=== PATIENT | female | born 1995 | race Caucasian/White ===

== ENCOUNTER → 2020-11-18 | Outpatient (REF) | payer OTHER ==
[2020-11-18 17:33] LABS: HEMATOCRIT 38.9 % (36.0-47.0); MEAN CORPUSCULAR HEMOGLOBIN 29.5 pg (27.0-33.0); MEAN CORPUSCULAR HGB CONC 33.4 g/dl (32.0-36.5); MEAN CORPUSCULAR VOLUME 88.4 fl (80.0-96.0); PLATELET COUNT, AUTOMATED 291 10^3/uL (150-450); WHITE BLOOD COUNT 7.7 10^3/uL (4.0-10.0)
[2020-11-18 18:42] LABS: HEPATITIS C VIRUS ABY INDEX < 0.0 INDEX (<0.8); HIV 1&2 SCREEN CENTAUR NEGATIVE (NEGATIVE)
== END ==
LOC: M PLALAB 15:41
PROVIDERS: ATTEND Advanced Practice Midwife
DX: Z36.89 Encounter for other specified antenatal screening (principal); Z3A.10 10 weeks gestation of pregnancy

== ENCOUNTER 2020-12-25 12:18 | Emergency (ER) | payer OTHER ==
[~2020-12-25] VITALS: Ht 177.8 cm; Wt 67.3 kg
[2020-12-25] MEDS ORDERED: TRUVTAB PO (12:24)
[2020-12-25] MEDS ORDERED: RALT40TA PO (12:24)
[2020-12-25] MEDS ORDERED: MULTTAB20 PO (12:24)
[2020-12-25 13:36] LABS: BASO % 0.4 % (0.0-1.0); EOS % 0.6 % (0.0-3.0); HEMATOCRIT 35.7 % (36.0-47.0); HEMOGLOBIN 12.5 g/dl (12.0-15.5); LYMPH # 1.1 10^3/uL (1.5-5.0); LYMPH % 23.3 % (24.0-44.0); MEAN CORPUSCULAR VOLUME 88.6 fl (80.0-96.0); MONO # 0.6 10^3/uL (0.0-0.8); MONO % 13.1 % (2.0-8.0); NEUTROPHILS % 62.4 % (36.0-66.0); PLATELET COUNT, AUTOMATED 217 10^3/uL (150-450); RED BLOOD COUNT 4.03 10^6/uL (4.00-5.40); WHITE BLOOD COUNT 4.7 10^3/uL (4.0-10.0)
[2020-12-25 14:04] LABS: ALBUMIN 3.5 GM/DL (3.2-5.2); ALT/SGPT 20 U/L (12-78); BILIRUBIN,TOTAL 0.2 MG/DL (0.2-1.0); BLOOD UREA NITROGEN 7 MG/DL (7-18); CARBON DIOXIDE LEVEL 27 MEQ/L (21-32); CHLORIDE LEVEL 105 MEQ/L (98-107); CREATININE FOR GFR 0.49 MG/DL (0.55-1.30); GLOMERULAR FILTRATION RATE > 60.0 (>60); GLUCOSE, FASTING 93 MG/DL (70-100); POTASSIUM SERUM 3.8 MEQ/L (3.5-5.1); SODIUM LEVEL 136 MEQ/L (136-145); TOTAL PROTEIN 7.2 GM/DL (6.4-8.2)
[2020-12-25 15:29] VITALS: BP 134/87
[2020-12-25 16:05] LABS: HIVEXPOSED0 NEGATIVE (NEGATIVE)
[2020-12-27 10:20] LABS: HEPATITIS B SURFACE ANTIBODY NEGATIVE (POSITIVE)
[2020-12-27 10:31] LABS: HEPATITIS B SURFACE ANTIGEN NEGATIVE (NEGATIVE)
[2020-12-27 10:59] LABS: HEPATITIS C VIRUS ABY INDEX < 0.0 INDEX (<0.8)
== END 2020-12-25 15:35 | disposition home or self-care (01) ==
LOC: M ED 12:18
DX: Z77.21 Contact with and (suspected) exposure to potentially hazardous body fluids (principal); O9A.212 Injury, poisoning and certain other consequences of external causes complicating pregnancy, second trimester; S69.92XA Unspecified injury of left wrist, hand and finger(s), initial encounter; X58.XXXA Exposure to other specified factors, initial encounter; Y92.238 Other place in hospital as the place of occurrence of the external cause; Y99.0 Civilian activity done for income or pay; Z3A.15 15 weeks gestation of pregnancy

== ENCOUNTER 2021-01-02 15:55 | Emergency (ER) | payer OTHER ==
[~2021-01-02] VITALS: Ht 177.8 cm; Wt 66.4 kg
[~2021-01-02 15:55] MED LIST: MULTTAB20 PO; RALT40TA PO; TRUVTAB PO
[2021-01-02] MEDS ORDERED: diphenhydrAMINE 50MG CAP PO ONE (18:10)
[2021-01-02] MEDS ORDERED: HYDROCORTISONE 1% CREAM 30 GM TOP ONE (18:10)
[2021-01-02 18:21] VITALS: BP 111/74
== END 2021-01-02 18:26 | disposition home or self-care (01) ==
LOC: M ED 15:55
DX: R21 Rash and other nonspecific skin eruption (principal); O99.712 Diseases of the skin and subcutaneous tissue complicating pregnancy, second trimester; L50.9 Urticaria, unspecified; Z3A.17 17 weeks gestation of pregnancy

== ENCOUNTER → 2021-01-10 | Outpatient (CLI) | payer OTHER ==
--- NOTE | 2021-01-10 17:22 | REP ---
INDICATION: ANATOMY. COMPARISON: None. TECHNIQUE: Transabdominal obstetric sonography. FINDINGS: Scanning through the gravid uterus demonstrates a viable single intrauterine gestation in cephalic lie. motion is observed and heart rate is recorded at 147 beats per minute. A posterior placenta is seen, grade 1, without evidence of placenta previa. Closed cervical length is measured at 3.0 cm transabdominally. No extrauterine abnormality is observed. Amniotic fluid is subjectively normal. The following anatomic structures are identified felt to be unremarkable: cranium, intracranial contents, nuchal fold face and profile nose and lips, left ventricular outflow tract view, diaphragm, left-sided stomach, abdominal wall cord insertion, right and left kidney, urinary bladder, upper and lower extremities, three-vessel cord. The following anatomic structures are less than optimally seen: For four-chamber heart and right ventricular outflow tract view, spine.. Biometry chart: BPD 4.1 cm, 18 weeks 2 days Head circumference 15.4 cm, 18 weeks 2 days Abdominal circumference 13.6 cm, 19 weeks 1 day Femur length 2.6 cm, 17 weeks 5 days Humeral length 2.6 cm, 18 weeks 3 days HC AC ratio normal 1.13 Cephalic index normal 0.72 Estimated weight 242 g, 0 lb 8 oz, 86 percentile for 17 weeks 5 days IMPRESSION: Viable single intrauterine gestation at 18 weeks 3 days by today's composite sonographic criteria. EDEN by today's sonography 10 June 2021. No complication identified. Expected gestational age estimate based on known EDEN of 15 June 2021 is 17 weeks 5 days. anatomic survey is less could than complete regarding four-chamber heart, right ventricular outflow tract view, and spine. <Electronically signed by Adin Torres > 01/10/21 [id number]
== END ==
LOC: M WHC 15:23
PROVIDERS: ATTEND Obstetrics & Gynecology
DX: Z34.82 Encounter for supervision of other normal pregnancy, second trimester (principal); Z3A.18 18 weeks gestation of pregnancy

== ENCOUNTER → 2021-01-24 | Outpatient (CLI) | payer OTHER ==
[~2021-01-24] MED LIST changes: +EMTR1TAB16 PO; -TRUVTAB PO
== END ==
LOC: M PLALAB 11:38
PROVIDERS: ATTEND Obstetrics & Gynecology
DX: Z34.82 Encounter for supervision of other normal pregnancy, second trimester (principal)

== ENCOUNTER → 2021-01-31 | Outpatient (CLI) | payer OTHER ==
--- NOTE | 2021-01-31 16:15 | REP ---
INDICATION: F/U HEART, SPINE, RVOT, EDEN 06/15/21 COMPARISON: 01/10/2021 TECHNIQUE: Transabdominal obstetrical ultrasound with color Doppler evaluation. FINDINGS: Examination demonstrates a single live intrauterine in breech presentation. motion is identified by technologist. Placenta is noted posterior and grade 1 without evidence for placenta previa or abruption. Amniotic fluid volume is normal. Cervix measures 4.0 cm in length and appears closed.. Gestational age by LMP 20 weeks 5 days with EDEN 06/15/2021. Gestational age by current measurements 21 weeks 3 days with EDEN 06/10/2021. FHR equals 169 beats per minute. Estimated weight 457 grams (greater than 97thpercentile). Anatomical assessment demonstrates normal structures including cranium, choroid plexus, cavum, cerebellum/posterior fossa, facial features, lungs, diaphragm, stomach, cord insertion/three-vessel cord, kidneys/bladder. Continued limited evaluation of the heart/ventricular outflow tracts and spine due to positioning. IMPRESSION: Single live intrauterine demonstrating greater than expected interval growth based on age by LMP and 1st U/S. Continued limited evaluation of the heart/ventricular outflow tract and spine. <Electronically signed by Moody Gooden > 01/31/21 [id number]
== END ==
LOC: M WHC 15:09
PROVIDERS: ATTEND Advanced Practice Midwife
DX: Z34.02 Encounter for supervision of normal first pregnancy, second trimester (principal); Z3A.20 20 weeks gestation of pregnancy

== ENCOUNTER → 2021-03-10 | Outpatient (REF) | payer OTHER ==
[2021-03-10 13:53] LABS: HEMATOCRIT 36.6 % (36.0-47.0); HEMOGLOBIN 12.1 g/dl (12.0-15.5); MEAN CORPUSCULAR HEMOGLOBIN 31.1 pg (27.0-33.0); MEAN CORPUSCULAR HGB CONC 33.1 g/dl (32.0-36.5); MEAN CORPUSCULAR VOLUME 94.1 fl (80.0-96.0); PLATELET COUNT, AUTOMATED 300 10^3/uL (150-450); RED BLOOD COUNT 3.89 10^6/uL (4.00-5.40); WHITE BLOOD COUNT 8.7 10^3/uL (4.0-10.0)
== END ==
LOC: M PLALAB 08:34
PROVIDERS: ATTEND Advanced Practice Midwife
DX: Z36.89 Encounter for other specified antenatal screening (principal); Z3A.22 22 weeks gestation of pregnancy

== ENCOUNTER → 2021-03-22 | Outpatient (CLI) | payer OTHER ==
--- NOTE | 2021-03-22 14:08 | REP ---
INDICATION: F/U ANATOMY. COMPARISON: 01/31/2021, 01/10/2021. TECHNIQUE: Real-time sonographic evaluation of the gravid uterus performed. FINDINGS: Estimated gestational age is27 weeks 6 days, EDC 06/15/2021. Today's measurements indicate appropriate growth. Presentation: Breech Placenta posterior, grade 1, without evidence of placenta previa. heart rate is recorded at 152 beats per minute. Amniotic fluid is subjectively normal. Closed cervical length is measured at 4.3 cm. Biometry chart: BPD: 69 mm, 27 weeks 5 days, 47th percentile. HC: 260 mm, 28 weeks 2 days, 59th percentile AC: 246 mm, 28 weeks 6 days, 70th percentile Femur length: 53 mm, 28 weeks 2 days, 60th percentile HC to AC ratio: 1.06, normal range 1.00-1.18. Estimated weight: 1242g, 64th percentile. anatomy: Cranium: Grossly normal Lateral Ventricles/Choroid Plexus: Grossly normal Posterior Fossa/Cerebellum: Grossly normal Nose/lips/profile: Grossly normal Four chamber heart: Grossly normal Right ventricular outflow tract: Grossly normal Left ventricular outflow tract: Grossly normal Left-sided stomach: Grossly normal Kidneys: Grossly normal Bladder: Grossly normal Cord Insertion: Grossly normal 3 vessel cord: Grossly normal Spine: Grossly normal IMPRESSION: Viable single intrauterine gestation as above. <Electronically signed by Geovanni Perez > 03/22/21 [id number]
== END ==
LOC: M WHC 13:03
PROVIDERS: ATTEND Advanced Practice Midwife
DX: Z36.89 Encounter for other specified antenatal screening (principal); Z3A.27 27 weeks gestation of pregnancy

== ENCOUNTER → 2021-05-24 | Outpatient (REF) | payer OTHER | LOC: M SFHCWAGY 17:07 | PROVIDERS: ATTEND Obstetrics & Gynecology | DX: Z36.85 Encounter for antenatal screening for Streptococcus B (principal) ==

== ENCOUNTER 2021-06-07 18:39 | Inpatient (IN) | payer OTHER ==
[2021-06-07] VITALS (14 sets, daily range): BP systolic 116–142; BP diastolic 55–89
[~2021-06-07] VITALS: Ht 177.8 cm; Wt 85.5 kg
[2021-06-07] MEDS ORDERED: OXYTOCIN 30 UNITS IN 0.9% NaCl 500ML IV BAG (J2590) As Ordered ONE (19:17)
--- NOTE | 2021-06-07 19:33 | HPEPDOC ---
Obstetrical History & Physical General Date of Admission Jun 07, 2021 at 19:10 History of Present Illness 25 yo at 38 6/7 weeks by LMP c/w 10 week ultrasound (EDC=06/15/2021) present s with regular contractions for the past several hours that became intense. She was seen in the office earlier today, but the contractions were more sporadic. Her cervix was 3 cm at that time. No loss of fluid. + movement. Chief Complaint: Contractions, term Information Provided By: Patient Age: 25 : 1 Term: 0 Pre-term: 0 Abortions: 0 Livin Care Care: Good Care Dating Final EDC: Jun 15, 2021 Final EDC by: LMP, 1st trimester (US) Past Medical History Past Obstetrical History : Past Obstetrical History: Primgravida Past Medical History Medical History Med hx: chlamydia x 1 surg hx: tonsils ankle surgery Family History Significant Family History: No pertinent family hx Social History Marital Status: Family situation: Spouse/partner home Psychosocial History: No pertinent psych hx * Smoker: non-smoker Allergies Coded Allergies: No Known Allergies (Unverified , 12/25/20) Medications Scheduled No122/Iron/Folic Acid ( Multi Tablet) 1 Each Tablet, 1 TAB PO DAILY Physical Examination Physical Examination GENERAL: Alert and oriented times three. BREAST: . ABDOMEN: Gravid and non-tender to touch. FETUS: Is vertex (VTX) by sterile vaginal examination (SVE), fetus is vertex (VTX) by Mark. HEART RATE: Regular rate and rhythm. LUNGS: Clear to auscultation (CTA). EXTREMITIES: No edema. No clonus. Deep tendon reflexes (DTRs) + . Vital Signs/I&O Vital Signs Date Time Temp Pulse Resp B/P (MAP) Pulse Ox O2 Delivery O2 Flow Rate FiO2 06/07/21 18:58 98.6 90 18 138/89 (105) Laboratory Data 24H [facility] Laboratory Tests 2 06/07/21 19:12: Serology Scanned Report Hepatitis B Testing Pertinent Laboratoy Data Blood Type: O+ Group B Streptococcus: Negative Vaginal Examination Dilation: 9 cm Effacement: 100% Station: 0 Cervical Consistency: Soft Cervical Position: Middle Presentation: Cephalic presentation Assessment Variability: Moderate Accelerations: Positive Decelerations: None Tocometer Contractions: Yes Frequency: regular Assessment/Plan Assessment Pt is a 25-year-old (G)1 para (P)0 at 38+6 weeks by LMP c/w 10 week ultrasound-week presents in labor. Plan Admit and orient. [employer] and consent. Diet: NPO Group B Streptococcus (GBS) negative. Labs and intravenous (IV) per unit protocol. Lactated Ringers (LR): Bolus mL, then at mL/hr. Anticipate normal spontaneous delivery (). C-S as appropriate. CHETAN AGUILLON MD Jun 07, 2021 19:33
[2021-06-07 19:59] LABS: HEMATOCRIT 35.7 % (36.0-47.0); HEMOGLOBIN 12.3 g/dl (12.0-15.5); MEAN CORPUSCULAR HEMOGLOBIN 30.7 pg (27.0-33.0); MEAN CORPUSCULAR HGB CONC 34.5 g/dl (32.0-36.5); PLATELET COUNT, AUTOMATED 281 10^3/uL (150-450); RED BLOOD COUNT 4.01 10^6/uL (4.00-5.40); WHITE BLOOD COUNT 12.9 10^3/uL (4.0-10.0)
[2021-06-07] MEDS ORDERED: LIDOCAINE 1% MDV 20ML VIAL As Ordered ONE (20:19)
[2021-06-07] MEDS ORDERED: DOCUSATE SODIUM 100MG CAPSULE PO PRN (20:50)
[2021-06-07] MEDS ORDERED: MEASLES,MUMPS,RUBELLA VACCINE INJ (MMR-II) (90707) SC SCH (20:50)
[2021-06-07] MEDS ORDERED: ACETAMINOPHEN TAB 650MG DOSE (2X325MG) PO PRN (20:50)
[2021-06-07] MEDS ORDERED: RHOGAM 300 MCG (1500 IU) INJ (J2790) IM SCH (20:50)
[2021-06-07] MEDS ORDERED: METHYLERGONOVINE MALEATE 0.2 MG TAB PO PRN (20:50)
[2021-06-07] MEDS ORDERED: IBUPROFEN 600MG TAB PO PRN (20:50)
[2021-06-07] MEDS ORDERED: LIDOCAINE 1% MDV 20ML VIAL INFIL ONE (20:50)
--- NOTE | 2021-06-07 20:54 | DNPDOC ---
[facility] Delivery Note Delivery Note DATE OF DELIVERY: June 07, 2021 PREDELIVERY DIAGNOSIS: 38-6/7 weeks' gestation and labor. POST DELIVERY DIAGNOSIS: Delivered. PROCEDURE: Spontaneous vaginal delivery. ERP SPECIALIST: Dr. Chetan Aguillon MD ANESTHESIA: none. ESTIMATED BLOOD LOSS: 300 mL. FINDINGS: 7 pound 5 ounce male infant, Score 8/9, nuchal cord times 1. DELIVERY SUMMARY: Patient is a 25-year-old 1 now para 1 who was admitted for active labor. She quickly reached 10 cm's dilation. After a 40 minute second stage of labor she had a spontaneous vaginal delivery of a 7 lb. 5 oz. male infant. Nuchal cord x 1 reduced manually. Shoulders delivered with ease. handed to mother and cried immediately. Cord doubly clamped and cut. Placenta delivered spontaneously and appeared intact. Pt did not receive IV Pitocin due to infiltration of IV line. Left and right small sulcus lacerations repaired under local anesthesia with 2-O Chromic in the usual fashion. Sponge and needle counts correct. CHETAN AGUILLON MD Jun 07, 2021 20:54
[2021-06-07] MEDS: IBUPROFEN 800 MG TAB PO PRN (21:51)
[2021-06-07] MEDS ORDERED: OXYTOCIN INJ 10 UNITS/ML VIAL (J2590) IM ONE (22:35)
[2021-06-07] MEDS ORDERED: OXYTOCIN INJ 10 UNITS/ML VIAL (J2590) As Ordered ONE (22:36)
[2021-06-07] MEDS: OXYTOCIN DRIP 30 UNITS in IV 1 EA IV SCH ×2 (23:21→23:46)
[2021-06-07] MEDS: ACETAMINOPHEN 500 MG TAB PO PRN (23:38)
[2021-06-08 00:25] VITALS: BP 126/78
[2021-06-08 06:00] VITALS: BP 108/60
[2021-06-08] MEDS: IBUPROFEN 800 MG TAB PO PRN (06:37)
[2021-06-08] MEDS: ACETAMINOPHEN 500 MG TAB PO PRN ×2 (09:42→21:47)
[2021-06-08] MEDS: PRENATAL VITAMINS CHEWABLE TABLET PO SCH (09:42)
[2021-06-08 18:00] VITALS: BP 102/58
[2021-06-09 06:07] VITALS: BP 120/69
[2021-06-09] MEDS: PRENATAL VITAMINS CHEWABLE TABLET PO SCH (07:26)
== END 2021-06-09 12:55 | disposition home or self-care (01) | DRG 560 ==
LOC: M LDO 18:39 → M LDI 19:10 → M OBS 06-08 00:23
PROVIDERS: ADMIT Specialist; ATTEND Specialist
PROC: 10E0XZZ Delivery of Products of Conception, External Approach (ICD-10-PCS; principal; 2021-06-07)
PROC: 0HQ9XZZ Repair Perineum Skin, External Approach (ICD-10-PCS; 2021-06-07)
DX: O69.81X0 Labor and delivery complicated by cord around neck, without compression, not applicable or unspecified (principal); Z3A.38 38 weeks gestation of pregnancy; Z37.0 Single live birth; O70.0 First degree perineal laceration during delivery

== ENCOUNTER → 2022-02-14 | Outpatient (REF) | payer OTHER | LOC: M PLALAB 13:40 | PROVIDERS: ATTEND Advanced Practice Midwife | DX: Z53.20 Procedure and treatment not carried out because of patient's decision for unspecified reasons (principal) ==

== ENCOUNTER → 2022-02-17 | Outpatient (CLI) | payer OTHER ==
[2022-02-17 10:57] LABS: HEMOGLOBIN 13.7 g/dl (12.0-15.5); MEAN CORPUSCULAR HEMOGLOBIN 29.7 pg (27.0-33.0); MEAN CORPUSCULAR HGB CONC 34.3 g/dl (32.0-36.5); MEAN CORPUSCULAR VOLUME 86.8 fl (80.0-96.0); PLATELET COUNT, AUTOMATED 276 10^3/uL (150-450); RED BLOOD COUNT 4.61 10^6/uL (4.00-5.40); WHITE BLOOD COUNT 7.2 10^3/uL (4.0-10.0)
[2022-02-17 12:18] LABS: HEPATITIS C VIRUS ABY INDEX 0.1 INDEX (<0.8); HIV 1&2 SCREEN CENTAUR NEGATIVE (NEGATIVE)
[2022-02-17 13:19] LABS: GC DNA AMPLIFICATION NEGATIVE (NEGATIVE)
== END ==
LOC: M PLALAB 07:55
PROVIDERS: ATTEND Advanced Practice Midwife
DX: Z34.91 Encounter for supervision of normal pregnancy, unspecified, first trimester (principal); Z3A.00 Weeks of gestation of pregnancy not specified

== ENCOUNTER → 2022-03-17 | Outpatient (CLI) | payer OTHER | LOC: M WHC 08:09 | PROVIDERS: ATTEND Specialist | DX: Z53.9 Procedure and treatment not carried out, unspecified reason (principal) ==

== ENCOUNTER → 2022-04-06 | Outpatient (CLI) | payer OTHER | LOC: M WHC 09:10 | PROVIDERS: ATTEND Specialist | DX: Z36.87 Encounter for antenatal screening for uncertain dates (principal); Z3A.18 18 weeks gestation of pregnancy ==

== ENCOUNTER → 2022-04-20 | Outpatient (CLI) | payer OTHER | LOC: M WHC 14:40 | PROVIDERS: ATTEND Obstetrics & Gynecology | DX: Z36.2 Encounter for other antenatal screening follow-up (principal); Z3A.20 20 weeks gestation of pregnancy ==

== ENCOUNTER → 2022-05-10 | Outpatient (CLI) | payer OTHER | LOC: M WHC 07:37 | PROVIDERS: ATTEND Obstetrics & Gynecology | DX: Z36.2 Encounter for other antenatal screening follow-up (principal); Z3A.23 23 weeks gestation of pregnancy ==

== ENCOUNTER → 2022-06-05 | Outpatient (CLI) | payer OTHER ==
[2022-06-05 11:12] LABS: HEMATOCRIT 34.7 % (36.0-47.0); HEMOGLOBIN 11.5 g/dl (12.0-15.5); MEAN CORPUSCULAR HEMOGLOBIN 30.6 pg (27.0-33.0); MEAN CORPUSCULAR HGB CONC 33.1 g/dl (32.0-36.5); MEAN CORPUSCULAR VOLUME 92.3 fl (80.0-96.0); PLATELET COUNT, AUTOMATED 242 10^3/uL (150-450); RED BLOOD COUNT 3.76 10^6/uL (4.00-5.40); WHITE BLOOD COUNT 7.3 10^3/uL (4.0-10.0)
[2022-06-05 12:47] LABS: GC DNA AMPLIFICATION NEGATIVE (NEGATIVE)
== END ==
LOC: M PLALAB 07:50
PROVIDERS: ATTEND Obstetrics & Gynecology
DX: Z36.89 Encounter for other specified antenatal screening (principal); Z36.9 Encounter for antenatal screening, unspecified
CPT/HCPCS: 36415; 82950; 85027; 86850; 86900; 86901; 87810; 87850; G0463

== ENCOUNTER → 2022-08-14 | Outpatient (REF) | payer OTHER | LOC: M SFHCWAGY 12:59 | PROVIDERS: ATTEND Specialist | DX: Z34.83 Encounter for supervision of other normal pregnancy, third trimester (principal) ==

== ENCOUNTER 2022-09-04 13:56 | Inpatient (IN) | payer OTHER ==
[~2022-09-04] VITALS: Ht 177.8 cm; Wt 83.1 kg
[2022-09-04] VITALS (29 sets, daily range): BP systolic 131–179; BP diastolic 78–102
[2022-09-04] MEDS ORDERED: ACET500P3 PO (14:14)
[2022-09-04] MEDS ORDERED: HOME MED LIST COMPLETE! XX SCH (14:25)
[2022-09-04 15:02] LABS: HEMATOCRIT 35.2 % (36.0-47.0); HEMOGLOBIN 11.5 g/dl (12.0-15.5); MEAN CORPUSCULAR HEMOGLOBIN 29.2 pg (27.0-33.0); MEAN CORPUSCULAR HGB CONC 32.7 g/dl (32.0-36.5); MEAN CORPUSCULAR VOLUME 89.3 fl (80.0-96.0); PLATELET COUNT, AUTOMATED 253 10^3/uL (150-450); RED BLOOD COUNT 3.94 10^6/uL (4.00-5.40)
[2022-09-04 15:10] LABS: TOTAL PROTEIN,RANDOM URINE 76.2 MG/DL (0.0-14.0)
[2022-09-04 15:15] LABS: CREATININE,RANDOM URINE 210.8 MG/DL
[2022-09-04 15:25] LABS: URIC ACID 5.7 MG/DL (3.1-7.8)
[2022-09-04 15:27] LABS: LDH LACTATE DEHYDROGENASE 182 U/L (120-246)
[2022-09-04 15:28] LABS: ALT/SGPT 13 U/L (7.0-40); AST/SGOT 17 U/L (<34); BILIRUBIN,TOTAL 0.4 MG/DL (0.3-1.2); CREATININE FOR GFR 0.62 MG/DL (0.55-1.30); GLOMERULAR FILTRATION RATE > 60.0 (>60)
[2022-09-04] MEDS ORDERED: LIDOCAINE 1% MDV 20ML VIAL INFIL PRN (15:30)
[2022-09-04] MEDS ORDERED: CARBOPROST TROMETHAMINE 250 MCG/ML AMP IM PRN (15:30)
[2022-09-04] MEDS ORDERED: OXYTOCIN DRIP 30 UNITS in IV 1 EA IV PRN (15:30)
[2022-09-04] MEDS ORDERED: PENICILLIN G POTASSIUM 5 MU IV 5 MU in D5W MINI-BAG PLUS 100 ML IV STA ×2 (15:30→17:38)
[2022-09-04] MEDS ORDERED: OXYTOCIN INJ 10UNITS/ML 1ML VIAL IM PRN (15:30)
[2022-09-04] MEDS ORDERED: TRANEXAMIC ACID INJection 1,000 MG in NS 100 ML IV PRN (15:30)
[2022-09-04] MEDS ORDERED: LACTATED RINGER'S 1000 ML IV STA (15:30)
[2022-09-04] MEDS ORDERED: OXYTOCIN DRIP 30 UNITS in IV 1 EA IV SCH (16:25)
[2022-09-04] MEDS ORDERED: LR 1,000 ML IV SCH (16:25)
[2022-09-04] MEDS ORDERED: LABETALOL 100MG/20ML VIAL IV STA ×2 (17:32→17:51)
[2022-09-04] MEDS ORDERED: PEN G POT 3,000,000 UNIT/50 ML 3,000,000 UNIT in IV 1 EA IV SCH ×2 (19:30→22:00)
[2022-09-04] MEDS ORDERED: DIBUCAINE 1% OINTMENT 30GM TOP PRN (22:15)
[2022-09-04] MEDS ORDERED: DOCUSATE SODIUM 100MG CAPSULE PO PRN (22:15)
[2022-09-04] MEDS ORDERED: IBUPROFEN 800 MG TAB PO PRN (22:15)
[2022-09-04] MEDS ORDERED: MOM 30ML SUSPENSION UDC PO PRN (22:15)
[2022-09-04] MEDS ORDERED: ACETAMINOPHEN TAB 650MG DOSE (2X325MG) PO PRN (22:15)
[2022-09-04] MEDS ORDERED: ANUSOL HC CREAM 30GM TOP PRN (22:15)
[2022-09-04] MEDS ORDERED: RHOGAM 300 MCG (1500 IU) INJ (J2790) IM SCH (22:15)
[2022-09-04] MEDS ORDERED: IBUPROFEN 600MG TAB PO PRN (22:15)
[2022-09-05 06:00] VITALS: BP 123/65
[2022-09-05] MEDS: PRENATAL VITAMINS CHEWABLE TABLET PO SCH (08:59)
[2022-09-05 18:00] VITALS: BP 146/76
[2022-09-05] MEDS: ACETAMINOPHEN 500 MG TAB PO PRN (18:16)
[2022-09-06] MEDS: ACETAMINOPHEN 500 MG TAB PO PRN (04:43)
[2022-09-06 06:15] VITALS: BP 131/78
[2022-09-06] MEDS: PRENATAL VITAMINS CHEWABLE TABLET PO SCH (08:54)
[2022-09-06] MEDS ORDERED: MEASLES,MUMPS,RUBELLA VACCINE INJ (MMR-II) (90707) SC.IMMUN ONE (09:00)
[2022-09-06 18:00] VITALS: BP 128/72
[2022-09-07 06:00] VITALS: BP 154/86
[2022-09-07] MEDS: PRENATAL VITAMINS CHEWABLE TABLET PO SCH (08:53)
== END 2022-09-07 15:30 | disposition home or self-care (01) | DRG 807 ==
LOC: M LDO 13:56 → M LDI 15:27 → M OBS 09-05 04:13
PROVIDERS: ADMIT Advanced Practice Midwife; ATTEND Advanced Practice Midwife
PROC: 10E0XZZ Delivery of Products of Conception, External Approach (ICD-10-PCS; principal; 2022-09-04)
PROC: 0HQ9XZZ Repair Perineum Skin, External Approach (ICD-10-PCS; 2022-09-04)
PROC: 3E033VJ Introduction of Other Hormone into Peripheral Vein, Percutaneous Approach (ICD-10-PCS; 2022-09-04)
DX: O14.94 Unspecified pre-eclampsia, complicating childbirth (principal); Z37.0 Single live birth; Z3A.39 39 weeks gestation of pregnancy; O99.824 Streptococcus B carrier state complicating childbirth; O70.0 First degree perineal laceration during delivery

== ENCOUNTER → 2023-02-22 | Outpatient (REF) | payer OTHER ==
[~2023-02-22] MED LIST changes: +ACET500P3 PO
== END ==
LOC: M PLALAB 11:02
PROVIDERS: ATTEND Advanced Practice Midwife
DX: Z12.4 Encounter for screening for malignant neoplasm of cervix (principal)
CPT/HCPCS: G0123; G0463

== ENCOUNTER → 2023-03-08 | Outpatient (REF) | payer OTHER | LOC: M PLALAB 15:53 | PROVIDERS: ATTEND Advanced Practice Midwife | DX: R87.612 Low grade squamous intraepithelial lesion on cytologic smear of cervix (LGSIL) (principal) ==

== ENCOUNTER → 2023-04-05 | Outpatient (REF) | payer OTHER | LOC: M SFHCWAGY 18:06 | PROVIDERS: ATTEND Specialist | DX: N87.1 Moderate cervical dysplasia (principal) ==

== ENCOUNTER → 2023-11-30 | Outpatient (CLI) | payer OTHER ==
[2023-11-30 12:30] LABS: HEMATOCRIT 41.4 % (36.0-47.0); HEMOGLOBIN 13.8 g/dl (12.0-15.5); MEAN CORPUSCULAR HEMOGLOBIN 30.1 pg (27.0-33.0); MEAN CORPUSCULAR HGB CONC 33.3 g/dl (32.0-36.5); MEAN CORPUSCULAR VOLUME 90.2 fl (80.0-96.0); PLATELET COUNT, AUTOMATED 315 10^3/uL (150-450); RED BLOOD COUNT 4.59 10^6/uL (4.00-5.40); WHITE BLOOD COUNT 5.6 10^3/uL (4.0-10.0)
[2023-11-30 12:48] LABS: HEMOGLOBIN A1c 4.8 % (4.0-6.0)
[2023-11-30 12:54] LABS: ALKALINE PHOSPHATASE 37 U/L (46-116); ALT/SGPT 14 U/L (7.0-40); AST/SGOT < 8 U/L (<34); BILIRUBIN,TOTAL 0.6 MG/DL (0.3-1.2); BLOOD UREA NITROGEN 10 MG/DL (9-23); CALCIUM LEVEL 9.5 MG/DL (8.5-10.1); CARBON DIOXIDE LEVEL 27 MMOL/L (20-31); CHLORIDE LEVEL 105 MMOL/L (98-107); CHOLESTEROL LEVEL 200 MG/DL (<200); CREATININE FOR GFR 0.75 MG/DL (0.55-1.30); GLOMERULAR FILTRATION RATE > 60.0 (>60); GLUCOSE, FASTING 76 MG/DL (60-100); HDL CHOLESTEROL 58.7 MG/DL (>40); HEPATITIS B SURFACE ANTIBODY NEGATIVE (POSITIVE); LDL CHOLESTEROL 107.3 MG/DL (<100); NON-HDL-C 141.3 MG/DL; SODIUM LEVEL 136 MMOL/L (136-145); TOTAL PROTEIN 7.5 G/DL (5.7-8.2); TRIGLYCERIDES LEVEL 170 MG/DL (<150)
[2023-11-30 12:56] LABS: FREE T4 1.05 NG/DL (0.89-1.76)
[2023-11-30 13:27] LABS: HEPATITIS C VIRUS ABY INDEX 0.08 INDEX (<0.8)
== END ==
LOC: M PLALAB 08:42
PROVIDERS: ATTEND Nurse Practitioner Adult Health
DX: N83.209 Unspecified ovarian cyst, unspecified side (principal); R11.0 Nausea; R74.01 Elevation of levels of liver transaminase levels; Z79.3 Long term (current) use of hormonal contraceptives

== ENCOUNTER → 2023-12-07 | Outpatient (CLI) | payer OTHER | LOC: M RAD 08:58 | PROVIDERS: ATTEND Nurse Practitioner Adult Health | DX: K80.20 Calculus of gallbladder without cholecystitis without obstruction (principal); R74.8 Abnormal levels of other serum enzymes; R11.0 Nausea; N83.202 Unspecified ovarian cyst, left side; Z79.3 Long term (current) use of hormonal contraceptives ==

== ENCOUNTER 2024-01-03 09:18 | Day surgery (SDC) | payer OTHER ==
[~2024-01-03] VITALS: Ht 177.8 cm; Wt 71.7 kg
[~2024-01-03 09:18] MED LIST changes: +ELDE350C PO; +IBUP-1022; +JUNETAB PO; +MULT-90 PO; +PEPC1TAB5 PO; +ceFAZolin SOD 2 GM in IV 1 EA IV ONE
[2024-01-03] MEDS ORDERED: LR 1,000 ML IV SCH ×2 (10:10→12:25)
[2024-01-03] MEDS: SCOPOLAMINE 1MG TRANSDERMAL PATCH TOP ONE (11:10)
[2024-01-03] MEDS: INDOCYANINE GREEN 25MG VIAL (IC-GREEN) IV ONE (11:25)
[2024-01-03] MEDS ORDERED: fentaNYL 100 MCG/2 ML INJECTION As Ordered ONE (11:43)
[2024-01-03] MEDS ORDERED: MIDAZOLAM INJ 2MG/2ML VIAL As Ordered ONE (11:43)
[2024-01-03] MEDS ORDERED: KETOROLAC 60MG 2ML VIAL As Ordered ONE (11:43)
[2024-01-03] MEDS ORDERED: LIDOCAINE 2% 100MG/5ML SDV (FOR ANES.) As Ordered ONE (11:43)
[2024-01-03] MEDS ORDERED: ACETAMINOPHEN 1000MG 100ML IV BAG As Ordered ONE (11:43)
[2024-01-03] MEDS ORDERED: propofoL 200 MG/20 ML VIAL As Ordered ONE (11:43)
[2024-01-03] MEDS ORDERED: ROCURONIUM BROMIDE 50MG/5ML VIAL As Ordered ONE (11:43)
[2024-01-03] MEDS ORDERED: INDOCYANINE GREEN 25MG VIAL (IC-GREEN) As Ordered ONE (11:43)
[2024-01-03] MEDS ORDERED: ONDANSETRON 4MG 2ML VIAL As Ordered ONE (11:43)
[2024-01-03] MEDS ORDERED: HYDROmorphone HCL 2MG/ML 1ML VIAL As Ordered ONE (11:48)
[2024-01-03] MEDS: HEPARIN SOD (PORCINE) 5000UNITS/ML 1ML VIAL/SYRINGE SQ ONE (11:49)
[2024-01-03] MEDS ORDERED: ESMOLOL INJ 100MG/10ML VIAL As Ordered ONE (12:00)
[2024-01-03] MEDS ORDERED: fentaNYL 100 MCG/2 ML INJECTION IV PRN (12:25)
[2024-01-03] MEDS ORDERED: HYDROMORPHONE HCL 0.5 MG/ 0.5 ML SYRINGE IV PRN (12:25)
[2024-01-03] MEDS ORDERED: oxyCODONE 5MG TAB PO PRN (12:25)
[2024-01-03] MEDS: ONDANSETRON 4MG 2ML VIAL IV PRN (12:54)
[2024-01-03] MEDS: METOCLOPRAMIDE INJ 10MG/2ML VIAL IV PRN (13:35)
[2024-01-03 14:40] VITALS: BP 129/75; TEMP 97.5; O2SAT 97
== END 2024-01-03 14:50 | disposition home or self-care (01) ==
LOC: M SDC 09:18
PROVIDERS: ATTEND Surgery
DX: K81.1 Chronic cholecystitis (principal); Z87.19 Personal history of other diseases of the digestive system; Z90.49 Acquired absence of other specified parts of digestive tract
CPT/HCPCS: 47562; 81025; 88304; J0131; J0665; J1100; J1170; J1805; J1885; J2250; J2405; J2765; J3010; Q9968; S2900

== ENCOUNTER → 2024-02-15 | Outpatient (REF) | payer OTHER ==
[~2024-02-15] MED LIST changes: -ceFAZolin SOD 2 GM in IV 1 EA IV ONE
== END ==
LOC: M PLALAB 09:59
PROVIDERS: ATTEND Advanced Practice Midwife
DX: Z01.419 Encounter for gynecological examination (general) (routine) without abnormal findings (principal)

== ENCOUNTER → 2025-04-07 | Outpatient (CLI) | payer OTHER | LOC: M RAD 09:05 | DX: L72.0 Epidermal cyst (principal) ==

== ENCOUNTER → 2025-04-29 | Outpatient (REF) | payer OTHER | LOC: M PLALAB 16:03 | PROVIDERS: ATTEND Advanced Practice Midwife | DX: Z12.4 Encounter for screening for malignant neoplasm of cervix (principal); Z87.410 Personal history of cervical dysplasia ==

== ENCOUNTER → 2025-07-22 | Outpatient (CLI) | payer OTHER ==
[~2025-07-22] MED LIST changes: -IBUP-1022; +IBUP600T42
[2025-07-22 17:17] LABS: PLATELET COUNT, AUTOMATED 302 10^3/uL (150-450)
[2025-07-22 17:52] LABS: LDH LACTATE DEHYDROGENASE 158 U/L (120-246)
[2025-07-22 17:53] LABS: ALT/SGPT 16 U/L (7.0-40); AST/SGOT 11 U/L (<34); CREATININE FOR GFR 0.59 MG/DL (0.55-1.30); GLOMERULAR FILTRATION RATE > 90.0 (>60); TOTAL PROTEIN,RANDOM URINE < 6.0 MG/DL (0.0-14.0)
[2025-07-22 18:23] LABS: Trichomonas vaginalis (AMP) NOT DETECTED (NEGATIVE)
[2025-07-22 18:35] LABS: HEPATITIS C VIRUS ABY INDEX < 0.02 INDEX (<0.8); HIV 1&2 SCREEN NEGATIVE (NEGATIVE)
[2025-07-22 18:47] LABS: GC DNA AMPLIFICATION NEGATIVE (NEGATIVE)
== END ==
LOC: M PLALAB 15:49
PROVIDERS: ATTEND Advanced Practice Midwife
DX: Z34.82 Encounter for supervision of other normal pregnancy, second trimester (principal)

== ENCOUNTER → 2025-09-04 | Outpatient (CLI) | payer OTHER | LOC: M WHC 13:44 | PROVIDERS: ATTEND Advanced Practice Midwife | DX: O34.42 Maternal care for other abnormalities of cervix, second trimester (principal) ==